=== PATIENT | male | born 1950 ===

== ENCOUNTER 2017-12-04 12:26 | Emergency (ER) | payer BC ==
[2017-12-04 12:30] VITALS: BMI 27.7
--- NOTE | 2017-12-04 12:54 | ED PDOC ---
HPI: Back Time Seen by Provider: 12/04/17 12:39 Chief Complaint (Nursing): Male Genitourinary History Per: Patient, Top Cager (Mackenzie Pennington (Pt.'s daughter; pt. prefers for his daughter to provide translation as opposed to hospital's translation services)) Additional Complaint(s): Pt. states for the for the past 2 weeks he's had b/l lower back pain (R>L) which radiates to his R groin and is associated with worsening urinary frequency. Pt. states last night. Denies trauma, incontinence, dysuria, hematuria, hx of kidney stones, N/V/D, fever, rash. Past Medical History Reviewed: Historical Data, Nursing Documentation, Vital Signs Vital Signs: Last Vital Signs Temp 97.7 F 12/04/17 12:35 Pulse 70 12/04/17 12:35 Resp 17 12/04/17 12:35 BP 151/80 H 12/04/17 12:35 Pulse Ox 96 12/04/17 12:35 - Family History Family History: States: No Known Family Hx - Home Medications Home Medications: Ambulatory Orders Medication Instructions Recorded Ciprofloxacin [Cipro] 500 mg PO BID #14 tab 12/04/17 Naproxen [Naprosyn] 500 mg PO BID PRN #10 tab 12/04/17 Tamsulosin [Flomax] 0.4 mg PO DAILY #7 cap 12/04/17 - Allergies Allergies/Adverse Reactions: Allergies Allergy/AdvReac Type Severity Reaction Status Date / Time Penicillins Allergy Mild RASH Verified 12/04/17 12:35 Review of Systems ROS Statement: Except As Marked, All Systems Reviewed And Found Negative Genitourinary Male: Positive for: Frequency Musculoskeletal: Positive for: Back Pain Physical Exam - Physical Exam Appears: Positive for: Well, Non-toxic, No Acute Distress Skin: Positive for: Normal Color, Warm. Negative for: Rash Eye Exam: Positive for: Normal appearance Cardiovascular/Chest: Positive for: Regular Rate, Rhythm Respiratory: Positive for: Normal Breath Sounds. Negative for: Respiratory Distress Gastrointestinal/Abdominal: Positive for: Normal Exam, Soft. Negative for: Tenderness Back: Positive for: Normal Inspection. Negative for: L CVA Tenderness, R CVA Tenderness, Vertebral Tenderness, Muscle Spasm Neurologic/Psych: Positive for: Alert, Oriented (x3) - Laboratory Results Result Diagrams: 12/04/17 13:05 08/23/18 13:05 - ECG O2 Sat by Pulse Oximetry: 96 - Progress ED Course And Treament: Labs, CT abd/pelvis w/o contrast ordered. 1459 CT abd/pelvis w/o contrast:1. No hydronephrosis, nephrolithiasis or obstructive uropathy. 2. Small layering stones in the right posterior-most dependent urinary bladder. 3. Focal thin linear calcification in the left posterior bladder wall is nonspecific and could be a sequela of remote infection/inflammation. 4. Moderate enlargement of the prostate gland with median lobe hypertrophy indenting on the base of the urinary bladder. Please correlate with PSA levels and digital rectal examination. Roll Winder #[id number] Pt. in no distress. Sitting down comfortably. Pt. informed of results. Advised to f/u with Dr. Tapia, urology, for further evaluation. Urinary strainer provided. Disposition - Clinical Impression Clinical Impression: Cystoliths - Patient ED Disposition Is Patient to be Admitted: No - Disposition Referrals: Edgar Tapia MD [Medical Doctor] - Disposition: Routine/Home Disposition Time: 14:59 Condition: STABLE Additional Instructions: FOLLOW UP WITH DR. TAPIA, UROLOGIST, FOR FURTHER EVALUATION TIAN PENNINGTON, thank you for letting us take care of you today. Your provider was Mariana Gonsalves MD and you were treated for PELVIC PAIN,LOWER BACK PAIN. The emergency medical care you received today was directed at your acute symptoms. If you were prescribed any medication, please fill it and take as directed. It may take several days for your symptoms to resolve. Return to the Emergency Department if your symptoms worsen, do not improve, or if you have any other problems. Please contact your doctor or call one of the physicians/clinics you have been referred to that are listed on the Patient Visit Information form that is included in your discharge packet. Bring any paperwork you were given at discharge with you along with any medications you are taking to your follow up visit. Our treatment cannot replace ongoing medical care by a primary care provider outside of the emergency department. Thank you for allowing the [facility] team to be part of your care today. If you had an X-Ray or CT scan: A Radiologist will review the ED reading if any change in treatment is needed we will contact you. If you had a blood, urine, or wound culture: It will take several days for the results, if any change in treatment is needed we will contact you. If you had an STI test: It will take 48 hours for the results. Please call after 1 week if you have not heard back. Prescriptions: Ciprofloxacin [Cipro] 500 mg PO BID #14 tab Naproxen [Naprosyn] 500 mg PO BID PRN #10 tab PRN Reason: Pain Tamsulosin [Flomax] 0.4 mg PO DAILY #7 cap Instructions: Renal Colic (DC), How to Strain Your Urine Forms: [facility] (Bengali) Print Language: NIUEAN
[2017-12-04 13:21] LABS: SQUAMOUS EPITHIAL < 1 /hpf (0-5); URINE BILIRUBIN NEGATIVE (NEGATIVE); URINE BLOOD MODERATE (NEGATIVE); URINE CLARITY CLEAR (Clear); URINE COLOR YELLOW (YELLOW); URINE GLUCOSE (UA) NEG (Normal); URINE LEUKOCYTE ESTERASE NEG Leu/uL (Negative); URINE PROTEIN 30 mg/dL (NEGATIVE); URINE UROBILINOGEN 0.2-1.0 mg/dL (0.2-1.0)
[2017-12-04 13:29] LABS: BASO # 0.1 K/uL (0.0-0.2); BASO % 0.6 % (0.0-2.0); EOS # 0.2 K/uL (0.0-0.7); EOS % 2.5 % (0.0-4.0); LYMPH # 1.9 K/uL (1.0-4.3); LYMPH % 22.9 % (20.0-40.0); MEAN CELL VOLUME 92.5 fl (80.0-94.0); MEAN CORPUSCULAR HEMOGLOBIN 31.6 pg (27.0-31.0); MEAN CORPUSCULAR HGB CONC 34.2 g/dL (33.0-37.0); MEAN PLATELET VOLUME 7.9 fl (7.2-11.7); MONO # 0.7 K/uL (0.0-0.8); MONO % 8.1 % (0.0-10.0); NEUT # 5.5 K/uL (1.8-7.0); NEUT % 65.9 % (50.0-75.0); NRBC % 0.1 % (0.0-0.0); RBC 4.75 Mil/uL (4.40-5.90); RED CELL DISTRIBUTION WIDTH 13.1 % (11.5-14.5); WHITE BLOOD COUNT 8.3 K/uL (4.8-10.8)
[2017-12-04 13:52] LABS: CALCIUM 9.3 mg/dL (8.4-10.2); GFR NON-AFRICAN AMERICAN > 60
[2017-12-04 13:53] LABS: ALBUMIN 4.7 g/dL (3.5-5.0); ALT/SGPT 41 U/L (21-72); AST/SGOT 49 U/L (17-59); BLOOD UREA NITROGEN 18 mg/dl (9-20)
--- NOTE | 2017-12-04 15:01 | CT ---
Date of service: 12/04/2017 PROCEDURE: CT Abdomen and Pelvis without intravenous contrast HISTORY: b/l back pain radiating to R groin COMPARISON: None. TECHNIQUE: CT scan of the abdomen and pelvis was performed without administration of intravenous contrast. Oral contrast was not administered. Coronal and sagittal reformatted images were obtained. . Radiation dose: Total exam DLP = 767.62 mGy-cm. This CT exam was performed using one or more of the following dose reduction techniques: Automated exposure control, adjustment of the mA and/or kV according to patient size, and/or use of iterative reconstruction technique. FINDINGS: LOWER THORAX: There is a small calcified granuloma in the right lateral lung base. There is dependent atelectasis in the lung bases the LIVER: Normal in size. No intrahepatic ductal dilatation. GALLBLADDER AND BILE DUCTS: No calcified gallstones. No biliary dilatation PANCREAS: Normal in size. No ductal dilatation. SPLEEN: Normal in size. ADRENALS: Normal in size. No discrete nodule. KIDNEYS AND URETERS: Both kidneys are normal in size without nephrolithiasis or hydronephrosis. There is a 10 mm presumable hemorrhagic cyst in the right lower pole. VASCULATURE: No aortic aneurysm. BOWEL: The small bowel loops are normal in caliber. The colon is normal in size. No bowel dilatation or wall thickening. No bowel obstruction. Left colonic diverticulosis without CT evidence for acute diverticulitis. APPENDIX: Normal appendix. PERITONEUM: No free fluid. No free air. LYMPH NODES: No enlarged lymph nodes. BLADDER: The urinary bladder is well distended. There are tiny layering stones in the most dependent right posterior urinary bladder. There is also apparent thin linear focal calcification in the left posterior bladder wall. REPRODUCTIVE: There is moderate enlargement of the prostate gland with median lobe hypertrophy indenting on the base of the urinary bladder. BONES: No acute fracture.There is diffuse bone demineralization and multilevel degenerative changes in the spine. OTHER FINDINGS: None. IMPRESSION: 1. No hydronephrosis, nephrolithiasis or obstructive uropathy. 2. Small layering stones in the right posterior-most dependent urinary bladder. 3. Focal thin linear calcification in the left posterior bladder wall is nonspecific and could be a sequela of remote infection/inflammation. 4. Moderate enlargement of the prostate gland with median lobe hypertrophy indenting on the base of the urinary bladder. Please correlate with PSA levels and digital rectal examination.
[2017-12-04 16:57] VITALS: BP 138/76; PULSE 76; RESP 20; TEMP 98.6; O2SAT 98
== END 2017-12-04 16:45 | disposition short-term general hospital (02) ==
LOC: H.ER 12:26
DX: N21.0 Calculus in bladder (principal); N40.1 Benign prostatic hyperplasia with lower urinary tract symptoms; Z88.0 Allergy status to penicillin